=== PATIENT | male | born 1980 | race Caucasian/White ===

== ENCOUNTER 2017-10-12 10:30 | Emergency (ER) | payer SELFPAY ==
[2017-10-12 10:38] VITALS: BMI 25.8
[2017-10-12] MEDS ORDERED: TORADOL 30 MG VIAL IVP ONE (12:04)
[2017-10-12] MEDS ORDERED: NS 1000 ML 1,000 ML IV ONE (12:04)
[2017-10-12] MEDS ORDERED: TORADOL 30 MG VIAL ONE (12:05)
--- NOTE | 2017-10-12 12:05 | DR.GENAD ---
HPI - PCP Primary Care Physician: NFD - Complaint/Symptoms Chief Complaint Doctors Comments: patient presents with myalgia, headache, rhinorrhea. Chief Complaint:: "MY BODY IS SORE. I'M RUNNING A FEVER. MY CHEST AND MY THROAT HURT. I THINK I GOT TO HOT AT WORK YESTERDAY." - Source History Provided: Patient, Parent - Mode of Arrival Mode of Arrival: Ambulatory - Timing Onset of Chief Complaint: 10/12/17 PMH - PMH Past Medical History: No Past Surgical History: No - Family History History of Family Medical Conditions: No - Social History Does patient currently use any type of tobacco product: Yes Have you used tobacco products in the last 12 months: Yes Type of Tobacco Use: Cigarettes Does any household member use tobacco: Yes Alcohol Use: None Do you use any recreational Drugs:: No Lives With: Mom Lives Where: Home - infectious screening Have you traveled outside the country in the last 6 months?: No Isolation: Standard ROS - Review of Systems Constitutional: Diaphoresis ENTM: No Symptoms Reported Respiratoy: No Symptoms Reported Cardiovascular: No Symptoms Reported Gastrointestinal/Abdominal: No Symptoms Reported Genitourinary: No Symptoms Reported Neurological: No Symptoms Reported Musculoskeletal: No Symptoms Reported Integumentary: No Symptoms Reported Hematologic/Lymphatic: No Symptoms Reported Endocrine: No Symptoms Reported Psychiatric: No Symptoms Reported All Other Systems: Reviewed and Negative PE - Vital Signs Vitals: Temperature 99.3 F Pulse Rate 94 Respiratory Rate 26 Blood Pressure 125/77 O2 Sat by Pulse Oximetry 100 - General Limitations: No Limitations General Appearance: Alert, In No Apparent Distress - Head Head Exam: Normal Inspection, Atraumatic - Eyes Eye exam: Normal Appearance, PERRL, EOMI - ENT ENT Exam: Normal Exam External Ear Exam: Normal External Inspection TM/Canal Exam: Bilateral Normal Nose Exam: Other (rhinorrhea) Mouth Exam: Normal Inspection Throat Exam: Normal Inspection - Neck Neck Exam: Normal Inspection, Full ROM - Chest Chest Inspection: Normal Inspection, Symmetric Chest Wall Rise - Respiratory Respiratory Exam: Normal Lung Sounds Bilat Respiratory Exam: Bilateral Clear to Auscultation - Cardiovascular Cardiovascular Exam: Regular Rate, Normal Rhythm - Abdominal Exam Abdominal Exam: Normal Inspection Abdominal Tenderness: negative: RUQ, RLQ, LUQ, LLQ, Epigastrium, Suprapubic, Diffuse, Mild, Moderate, Severe, Other - Extremities Extremities Exam: Normal Inspection, Other (left lower medially with a large cyst-like mass; non tender (5 year duration)) - Back Back Exam: Normal Inspection - Neurologic Neurological Exam: Alert, Oriented X3, CN II-XII Intact - Skin Skin Exam: Warm, Dry, Intact Course - Reevaluation 1st: Improved ROR - Labs Reviewed Laboratory Results Reviewed?: Yes (low potassium) Result Diagrams: 10/12/17 12:19 10/12/17 12:19 Laboratory: WBC 12.5 X10^3/uL (3.6-10.0) H 10/12/17 12:19 RBC 5.13 X10^6/uL (4.7-6.0) 10/12/17 12:19 Hgb 16.1 g/dL (13.5-18.0) 10/12/17 12:19 Hct 45.5 % (42.0-54.0) 10/12/17 12:19 MCV 88.6 fL (80.0-100.0) 10/12/17 12:19 MCH 31.3 pg (27.0-34.0) 10/12/17 12:19 MCHC 35.3 g/dL (33.0-35.0) H 10/12/17 12:19 RDW 12.9 % (11.6-16.5) 10/12/17 12:19 Plt Count 261 X10^3/uL (150.0-450.0) 10/12/17 12:19 MPV 7.5 fL (7.4-11.0) 10/12/17 12:19 Neut % (Auto) 74.2 % (42.0-75.0) 10/12/17 12:19 Lymph % (Auto) 10.9 % (21.0-51.0) L 10/12/17 12:19 Borden % (Auto) 13.2 % (0.0-13.0) H 10/12/17 12:19 Eos % (Auto) 1.3 % (0.9-2.9) 10/12/17 12:19 Baso % (Auto) 0.4 % (0.2-1.0) 10/12/17 12:19 Neut # (Auto) 9.3 x10^3/uL (2.2-4.8) H 10/12/17 12:19 Lymph # (Auto) 1.4 X10^3/uL (1.3-2.9) 10/12/17 12:19 Borden # (Auto) 1.7 x10^3/uL (0.3-0.8) H 10/12/17 12:19 Eos # (Auto) 0.2 x10^3/uL (0.0-0.2) 10/12/17 12:19 Baso # (Auto) 0.1 X10^3/uL (0.0-0.1) 10/12/17 12:19 Absolute Nucleated RBC 0.0 /100WBC 10/12/17 12:19 Sodium 136 mmol/L (136-145) 10/12/17 12:19 Corrected Sodium TNP 10/12/17 12:19 Potassium 3.4 mmol/L (3.5-5.1) L 10/12/17 12:19 Chloride 102 mmol/L (98-107) 10/12/17 12:19 Carbon Dioxide 26.4 mmol/L (21-32) 10/12/17 12:19 BUN 7 mg/dL (7-18) 10/12/17 12:19 Creatinine 0.77 mg/dL (0.70-1.30) 10/12/17 12:19 Est GFR (MDRD) Af Amer > 60 (>60) 10/12/17 12:19 Est GFR (MDRD) Non-Af > 60 (>60) 10/12/17 12:19 Glucose 101 mg/dL (65-99) H 10/12/17 12:19 Calcium 7.5 mg/dL (8.5-10.1) L 10/12/17 12:19 Corrected Calcium TNP 10/12/17 12:19 Total Bilirubin 0.50 mg/dL (0.2-1.0) 10/12/17 12:19 AST 13 Units/L (15-37) L 10/12/17 12:19 ALT 20 Units/L (12-78) 10/12/17 12:19 Alkaline Phosphatase 83 Units/L (46-116) 10/12/17 12:19 C-Reactive Protein 7.20 mg/L (0-3.0) H 10/12/17 12:19 Total Protein 6.3 g/dL (6.4-8.2) L 10/12/17 12:19 Albumin 3.4 g/dL (3.4-5.0) 10/12/17 12:19 Globulin 2.9 g/dL (2.5-4.5) 10/12/17 12:19 Albumin/Globulin Ratio 1.2 Ratio (1.1-2.1) 10/12/17 12:19 - XRAY XRAY Interpreted by: Radiologist (Chest: No acute cardiopulmonary disease) - Diagnosis Discharge Problem: Acute viral illness - Discharge Plan Condition: Stable - Follow ups/Referrals Follow ups/Referrals: NFD,None [Primary Care Provider] - 3 days - Instructions
[2017-10-12] MEDS ORDERED: NS 1000 ML 1,000 ML ONE (12:07)
--- NOTE | 2017-10-12 12:30 | RAD ---
HISTORY: Fever with chest and throat pain Study: Single-view chest Comparison: None Findings: The trachea is midline. The cardiac silhouette is unremarkable. The lungs are clear without focal i nfiltrate or effusion. The bony thorax is unremarkable. IMPRESSION: 1. No acute cardiopulmonary disease. Reported By:
[2017-10-12 12:32] LABS: BASOPHILS # (AUTO) 0.1 X10^3/uL (0.0-0.1); BASOPHILS % (AUTO) 0.4 % (0.2-1.0); EOSINOPHILS # (AUTO) 0.2 x10^3/uL (0.0-0.2); EOSINOPHILS % (AUTO) 1.3 % (0.9-2.9); HEMATOCRIT 45.5 % (42.0-54.0); HEMOGLOBIN 16.1 g/dL (13.5-18.0); LYMPHOCYTES # (AUTO) 1.4 X10^3/uL (1.3-2.9); LYMPHOCYTES % (AUTO) 10.9 % (21.0-51.0); MEAN CORPUSCULAR HEMOGLOBIN 31.3 pg (27.0-34.0); MEAN CORPUSCULAR HGB CONC 35.3 g/dL (33.0-35.0); MEAN CORPUSCULAR VOLUME 88.6 fL (80.0-100.0); MEAN PLATELET VOLUME 7.5 fL (7.4-11.0); MONOCYTES # (AUTO) 1.7 x10^3/uL (0.3-0.8); MONOCYTES % (AUTO) 13.2 % (0.0-13.0); NEUTROPHILS # (AUTO) 9.3 x10^3/uL (2.2-4.8); NEUTROPHILS % (AUTO) 74.2 % (42.0-75.0); PLATELET COUNT 261 X10^3/uL (150.0-450.0); RED BLOOD COUNT 5.13 X10^6/uL (4.7-6.0); RED CELL DISTRIBUTION WIDTH 12.9 % (11.6-16.5); WHITE BLOOD COUNT 12.5 X10^3/uL (3.6-10.0)
[2017-10-12 12:38] LABS: ALANINE AMINOTRANSFERASE 20 Units/L (12-78); ALBUMIN 3.4 g/dL (3.4-5.0); ALKALINE PHOSPHATASE 83 Units/L (46-116); ASPARTATE AMINO TRANSFERASE 13 Units/L (15-37); BLOOD UREA NITROGEN 7 mg/dL (7-18); CALCIUM 7.5 mg/dL (8.5-10.1); CARBON DIOXIDE 26.4 mmol/L (21-32); CHLORIDE 102 mmol/L (98-107); CREATININE 0.77 mg/dL (0.70-1.30); SODIUM 136 mmol/L (136-145); TOTAL PROTEIN 6.3 g/dL (6.4-8.2); eGFR BLACK RACES > 60 (>60); eGFR NON BLACK RACES > 60 (>60)
[2017-10-12 14:39] VITALS: BP 117/71
== END 2017-10-12 14:43 | disposition home or self-care (01) ==
LOC: ER 10:44
DX: R52 Pain, unspecified (principal); B34.9 Viral infection, unspecified; R79.82 Elevated C-reactive protein (CRP)
CPT/HCPCS: 36415; 71045; 80053; 85025; 86140; 96365; 96374; 99283; A4222; J1885